=== PATIENT | male | born 1975 | race Caucasian/White ===

== ENCOUNTER 2024-05-23 14:11 | Emergency (ER) | payer BC ==
[2024-05-23] MEDS: fentaNYL 50 MCG/ML SDV IVPUSH STA (14:37)
[2024-05-23 14:39] LABS: BASOPHILS ABSOLUTE AUTO 0.06 K/uL (0.00-0.20); BASOPHILS PERCENT AUTO 0.7 % (0.0-1.0); EOSINOPHILS ABSOLUTE AUTO 0.19 K/uL (0.00-0.45); EOSINOPHILS PERCENT AUTO 2.3 % (0.0-6.0); HEMATOCRIT 38.2 % (42.0-52.0); IMMATURE GRAN ABSOLUTE AUTO 0.01 K/uL (0.00-0.05); IMMATURE GRAN PERCENT AUTO 0.1 % (0.0-0.4); LYMPHOCYTES ABSOLUTE AUTO 2.33 K/uL (1.00-4.80); LYMPHOCYTES PERCENT AUTO 28.6 % (24.0-44.0); MEAN CORPUSCULAR HEMOGLOBIN 31.1 pg (28.0-32.0); MEAN CORPUSCULAR HGB CONC 36.6 g/dL (32.0-36.0); MEAN CORPUSCULAR VOLUME 84.9 fL (83.0-99.0); MONOCYTES ABSOLUTE AUTO 0.85 K/uL (0.00-0.80); MONOCYTES PERCENT AUTO 10.4 % (0.0-8.0); NEUTROPHILS PERCENT AUTO 57.9 % (41.0-71.0); PLATELET COUNT,PLT 232 K/uL (150-400); WHITE BLOOD CELL COUNT,WBC 8.14 K/uL (3.9-11.3)
[2024-05-23 14:49] LABS: INR 1.09 (0.86-1.11); PTT,PARTIAL THROMBOPLSTIN TIME 22.2 SEC (23.9-30.7)
[2024-05-23 14:56] LABS: A/G RATIO 1.3 (0.9-1.6); ALBUMIN 4.1 g/dL (3.4-5.0); BILIRUBIN TOTAL 0.9 mg/dL (0.2-1.0); CARBON DIOXIDE,CO2 23.2 mmol/L (21.0-32.0); CREATININE 1.5 mg/dL (0.8-1.3); EST CRCL DRUG DOSING (CG) 66.82 mL/min; POTASSIUM,K 3.8 mmol/L (3.5-5.1); PROTEIN TOTAL,TP 7.2 g/dL (6.4-8.2)
[2024-05-23] MEDS: ceFAZolin 2 GM in Sodium Chloride 0.9% 50 ML IV ONE (14:57)
[2024-05-23] MEDS: fentaNYL 50 MCG/ML SDV ONE (14:57)
[2024-05-23] MEDS: Lidocaine 1% 10 ML MDV INJECT ONE ×3 (15:00→17:34)
[2024-05-23] MEDS: Morphine 4 MG/ML Syringe IVPUSH ONE (15:41)
[2024-05-23] MEDS: Diphtheria,Pertussis(Acell),Tetanus Vaccine 0.5 ML Syringe IM ONE (15:44)
[2024-05-23] MEDS: Bacitracin Oint 1 GM U/D Packet TOP ONE (18:30)
[2024-05-23] MEDS: Sodium Chloride 0.9% 2.5 ML Syringe FLUSH PRN (18:35)
[2024-05-23] MEDS: Sodium Chloride 0.9% 10 ML Syringe FLUSH PRN (18:35)
== END 2024-05-23 19:21 | disposition home or self-care (01) ==
LOC: MW.ED 14:11
DX: S61.411A Laceration without foreign body of right hand, initial encounter (principal); W26.8XXA Contact with other sharp object(s), not elsewhere classified, initial encounter; Y92.238 Other place in hospital as the place of occurrence of the external cause; Y99.0 Civilian activity done for income or pay
CPT/HCPCS: 12002; 36415; 73110; 73130; 80053; 85025; 85610; 85730; 86850; 86900; 86901; 90471; 90715; 96365; 96375; 99284; J0690; J2270; J3010; J3490